=== PATIENT | female | born 1950 | race Caucasian/White ===

== ENCOUNTER 2016-09-11 07:44 | Outpatient (RCR) | payer MEDICARE, BC ==
[~2016-09-11] VITALS: Ht 162.6 cm; Wt 118.2 kg
[~2016-09-11 07:44] MED LIST: ALDACTONE 25MG25 M1 PO; BETAPACE 120MG120 MG PO; BETAPACE 80MG80 MG PO; BETAPACE AF160 MG PO; BETAPACE AF80 MG/TA1 PO; COUMADIN 1MG1 MG/TAB PO; COUMADIN 5MG5 MG/TAB PO; FISH OIL1000 MG PO; MULTI VITAMINS1 TAB PO; NORCO 325 MG-51 TAB PO; PRAVACHOL10 MG PO; PRILOSEC 20MG20 MG PO; TOPROL XL25 MG PO; ULTRAM 50MG TAB50 MG PO
[2016-09-11] MEDS ORDERED: LOVENOX150 MG/ML SQ (08:01)
[2016-09-11 08:10] VITALS: BP 131/71; PULSE 94; TEMP 97.2
[2016-09-12 08:47] VITALS: BP 134/46; PULSE 85; TEMP 97.6
[2016-09-13] MEDS ORDERED: PRIL40 PO (06:28)
[2016-09-13] MEDS ORDERED: REQUIP 0.5MG0.5 MG PO (06:31)
[2016-09-13] MEDS ORDERED: AMBIEN 5MG TABLE5 MG PO (06:31)
[2016-09-13] MEDS ORDERED: FLAGYL500 MG PO (11:32)
[2016-09-13] MEDS ORDERED: CIPRO 500MG TA500 MG PO (11:32)
[2016-09-13] MEDS ORDERED: PERCOCET 325 MG1 TA2 PO (11:33)
[2016-09-13] MEDS ORDERED: ZOFRAN ODT4 MG PO (11:34)
== END 2016-09-12 08:57 | disposition home or self-care (01) ==
LOC: EUO 08:00
DX: Z79.01 Long term (current) use of anticoagulants (principal)
CPT/HCPCS: J1560

== ENCOUNTER 2016-09-13 05:27 | Day surgery (SDC) | payer MEDICARE, BC ==
[~2016-09-13] VITALS: Ht 162.6 cm; Wt 119.1 kg
[2016-09-13] VITALS (10 sets, daily range): BP systolic 107–133; BP diastolic 38–69; PULSE 65–98; TEMP 97.4–100
[~2016-09-13 05:27] MED LIST changes: +LOVENOX150 MG/ML SQ
[2016-09-13] MEDS ORDERED: PRIL40 PO (06:28)
[2016-09-13] MEDS ORDERED: AMBIEN 5MG TABLE5 MG PO (06:31)
[2016-09-13] MEDS ORDERED: REQUIP 0.5MG0.5 MG PO (06:31)
[2016-09-13] MEDS ORDERED: CIPRO 500MG TA500 MG PO (11:32)
[2016-09-13] MEDS ORDERED: FLAGYL500 MG PO (11:32)
[2016-09-13] MEDS ORDERED: PERCOCET 325 MG1 TA2 PO (11:33)
[2016-09-13] MEDS ORDERED: ZOFRAN ODT4 MG PO (11:34)
[2016-09-14 02:07] VITALS: BP 112/52; PULSE 85; TEMP 97.5
[2016-09-14 05:02] VITALS: BP 123/45; PULSE 74; TEMP 98.2
[2016-09-14 07:21] LABS: BASO # 0.1 (0.0-0.2); BASO % 0.4 % (0.0-2.0); EOS # 0.3 (0.0-0.7); EOS % 2.6 % (0-4.0); GRAN # 9.7 (1.4-6.5); GRAN % 77.1 % (42.2-75.2); HEMATOCRIT 37.4 % (37.0-47.0); LYMPH # 1.4 (1.2-3.4); LYMPH % 11.3 % (20.0-51.0); MEAN CELL VOLUME 89 fl (80.0-100.0); MEAN CORPUSCULAR HEMOGLOBIN 28 pg (27.0-31.0); MEAN CORPUSCULAR HGB CONC 32 g/dl (33.0-37.0); MEAN PLATELET VOLUME 11.2 fl (7.4-10.4); MONO % 8.1 % (1.7-9.3); PLATELET COUNT 345 K/mm3 (130-400); REDCELL DISTRIBUTION WIDTH-CV 14.8 % (11.5-14.5); WHITE BLOOD COUNT 12.6 K/mm3 (4.8-10.8)
[2016-09-14 07:39] LABS: HEMOGLOBIN 11.9 g/dl (12.5-16.0)
[2016-09-14 07:42] LABS: CALCIUM 8.9 mg/dL (8.4-10.2); CREATININE, serum 0.83 mg/dL (0.52-1.25); POTASSIUM 4.1 mmol/L (3.4-5.0)
[2016-09-14 10:16] VITALS: BP 117/65; PULSE 99
[2016-09-14 13:32] VITALS: BP 135/51; PULSE 86; TEMP 97.6
== END 2016-09-14 14:45 | disposition home or self-care (01) ==
LOC: SDCO 05:27 → SURG 11:53 → SDCO 09-14 14:45
PROVIDERS: Surgery
DX: K43.2 Incisional hernia without obstruction or gangrene (principal); K66.0 Peritoneal adhesions (postprocedural) (postinfection); Z86.718 Personal history of other venous thrombosis and embolism; Z79.01 Long term (current) use of anticoagulants
CPT/HCPCS: OP; C1781; J1100; J1170; J2405; J2704; J3010; J7120

== ENCOUNTER 2016-10-17 10:11 | Emergency (ER) | payer MEDICARE, BC ==
[~2016-10-17] VITALS: Ht 162.6 cm; Wt 115.9 kg
[~2016-10-17 10:11] MED LIST changes: +AMBIEN 5MG TABLE5 MG PO; +CIPRO 500MG TA500 MG PO; +FLAGYL500 MG PO; +PERCOCET 325 MG1 TA2 PO; +PRIL40 PO; +REQUIP 0.5MG0.5 MG PO; +ZOFRAN ODT4 MG PO
[2016-10-17 10:21] VITALS: TEMP 98.8
[2016-10-17 11:06] LABS: BASO # 0.1 (0.0-0.2); BASO % 1.5 % (0.0-2.0); EOS # 0.4 (0.0-0.7); GRAN # 4.5 (1.4-6.5); GRAN % 57.7 % (42.2-75.2); HEMATOCRIT 40.8 % (37.0-47.0); HEMOGLOBIN 12.9 g/dl (12.5-16.0); LYMPH % 25.4 % (20.0-51.0); MEAN CELL VOLUME 87 fl (80.0-100.0); MEAN CORPUSCULAR HEMOGLOBIN 27 pg (27.0-31.0); MEAN CORPUSCULAR HGB CONC 32 g/dl (33.0-37.0); MEAN PLATELET VOLUME 10.8 fl (7.4-10.4); MONO # 0.8 (0.1-0.6); PLATELET COUNT 409 K/mm3 (130-400); REDCELL DISTRIBUTION WIDTH-CV 14.3 % (11.5-14.5); WHITE BLOOD COUNT 7.8 K/mm3 (4.8-10.8)
[2016-10-17 11:12] LABS: INR 2.2 (0.8-3.0); PROTHROMBIN TIME 24.7 SECONDS (9.7-12.8)
[2016-10-17 11:17] LABS: ADJUSTED CALCIUM 9.2 mg/dL (8.4-10.2); ALANINE AMINOTRANSFERASE 33 U/L (9-52); ALKALINE PHOSPHATASE 72 U/L (50-136); ANION GAP 11 mmol/L (7-16); BILIRUBIN,TOTAL 0.9 mg/dL (0.0-1.0); BLOOD UREA NITROGEN 15 mg/dL (7-17); CALCIUM 9.2 mg/dL (8.4-10.2); CARBON DIOXIDE 27 mmol/L (22-30); CHLORIDE 102 mmol/L (98-107); CREATININE, serum 0.75 mg/dL (0.52-1.25); GLUCOSE 92 mg/dL (74-106); POTASSIUM 4.2 mmol/L (3.4-5.0); SODIUM 140 mmol/L (137-145); TOTAL PROTEIN 7.5 gm/dL (6.4-8.2)
[2016-10-17 11:30] LABS: B-TYPE NATRIURETIC PEPTIDE 820 pg/mL (0-125)
[2016-10-17 11:31] LABS: TROPONIN-I < 0.012 ng/mL (0.000-0.034)
[2016-10-17 11:47] LABS: THYROID STIMULATING HORMONE 0.877 uIU/mL (0.465-4.680)
[2016-10-17] MEDS ORDERED: BETAPACE 80MG80 MG PO (11:57)
[2016-10-17 12:37] VITALS: BP 110/45; PULSE 110
== END 2016-10-17 12:40 | disposition home or self-care (01) ==
LOC: COL.ER 10:11
PROVIDERS: Emergency Medicine
DX: I48.91 Unspecified atrial fibrillation (principal); Z79.01 Long term (current) use of anticoagulants
CPT/HCPCS: J7030

== ENCOUNTER 2016-10-20 09:32 | Day surgery (SDC) | payer MEDICARE, BC ==
[~2016-10-20] VITALS: Ht 162.7 cm; Wt 115.9 kg
[2016-10-20 11:05] LABS: HEMATOCRIT 40.2 % (37.0-47.0); HEMOGLOBIN 12.6 g/dl (12.5-16.0); MEAN CELL VOLUME 87 fl (80.0-100.0); MEAN CORPUSCULAR HEMOGLOBIN 27 pg (27.0-31.0); MEAN CORPUSCULAR HGB CONC 31 g/dl (33.0-37.0); MEAN PLATELET VOLUME 10.6 fl (7.4-10.4); PLATELET COUNT 432 K/mm3 (130-400); RED BLOOD COUNT 4.62 M/mm3 (4.10-5.30); REDCELL DISTRIBUTION WIDTH-CV 14.3 % (11.5-14.5); WHITE BLOOD COUNT 7.9 K/mm3 (4.8-10.8)
[2016-10-20 11:10] LABS: INR 2.1 (0.8-3.0); PROTHROMBIN TIME 23.9 SECONDS (9.7-12.8)
[2016-10-20] MEDS ORDERED: COUMADIN 1MG1 MG/TAB PO (11:51)
[2016-10-20 11:54] LABS: CALCIUM 9.3 mg/dL (8.4-10.2); CREATININE, serum 0.74 mg/dL (0.52-1.25); POTASSIUM 4.1 mmol/L (3.4-5.0)
[2016-10-20] MEDS ORDERED: ULTRAM 50MG TAB50 MG PO (11:54)
[2016-10-20] MEDS ORDERED: MULTIPLE VITAMI1 CAP PO (11:55)
[2016-10-20] MEDS ORDERED: GLUCOSAMINE SU500 M2 PO (11:55)
[2016-10-20] MEDS ORDERED: OMEGA-3 1000 MG1 CAP PO (11:55)
[2016-10-20 13:00] VITALS: BP 106/74; PULSE 114
[2016-10-20 13:17] VITALS: BP 96/52; PULSE 67
[2016-10-20 13:50] VITALS: BP 110/52; PULSE 71
[2016-10-20 14:10] VITALS: BP 109/49; PULSE 69
[2016-10-20 14:48] VITALS: BP 119/49; PULSE 68
== END 2016-10-20 14:51 | disposition home or self-care (01) ==
LOC: COL.RAD 09:32
PROVIDERS: Internal Medicine Cardiovascular Disease
DX: I48.0 Paroxysmal atrial fibrillation (principal); I08.3 Combined rheumatic disorders of mitral, aortic and tricuspid valves; E78.5 Hyperlipidemia, unspecified; K21.9 Gastro-esophageal reflux disease without esophagitis; E66.9 Obesity, unspecified; Z79.82 Long term (current) use of aspirin; Z79.01 Long term (current) use of anticoagulants; Z79.899 Other long term (current) drug therapy
CPT/HCPCS: G9654; J2704; J7030

== ENCOUNTER → 2017-04-27 | Outpatient (CLI) | payer MEDICARE, BC ==
[~2017-04-27] MED LIST changes: +CLARITIN-D 10 M1 T24 PO; +COUMADIN 2MG2 MG/TAB PO; +GLUCOSAMINE SU500 M2 PO; +MULTIPLE VITAMI1 CAP PO; +OMEGA-3 1000 MG1 CAP PO; +OPTIFLEX-G 7501 TAB PO; +REQUIP 1MG T1 MG/TAB PO; +VITAMIN D32000 I1 PO; +VITAMINC1000TA PO
== END ==
LOC: MC.RAD 08:37
DX: Z12.31 Encounter for screening mammogram for malignant neoplasm of breast (principal)

== ENCOUNTER → 2018-05-07 | Outpatient (CLI) | payer MEDICARE, BC ==
[~2018-05-07] MED LIST changes: -CLARITIN-D 10 M1 T24 PO; -COUMADIN 2MG2 MG/TAB PO; -OPTIFLEX-G 7501 TAB PO; -REQUIP 1MG T1 MG/TAB PO; -VITAMIN D32000 I1 PO; -VITAMINC1000TA PO
== END ==
LOC: MC.RAD 10:40
DX: Z12.31 Encounter for screening mammogram for malignant neoplasm of breast (principal)